=== PATIENT | female | born 1975 | race American Indian/Alaskan Native ===

== ENCOUNTER 2022-05-08 07:16 | Outpatient (CLI) | payer OTHER ==
--- NOTE | 2022-05-08 13:01 | Fluoroscopy Report ---
SMALL BOWEL FOLLOW-THROUGH HISTORY: R10.9. TECHNIQUE: Single contrast barium technique utilized to evaluate the small bowel. FINDINGS: Small bowel transit time was 60 minutes which is normal. No fold thickening, mass, mass e ffect, stenosis, or obstruction. The terminal ileum is normal in appearance. IMPRESSION: Unremarkable exam. FLUOROSCOPIC TIME: 0.8 minutes NUMBER OF FLUOROSCOPIC IMAGES: 3 Signer Name: Jose Bar Jr, MD Signed: 05/08/2022 12:57 PM Workstation Name: [id number]
--- NOTE | 2022-05-08 15:42 | Fluoroscopy Report ---
UPPER GI HISTORY: N39.0 R93.5. TECHNIQUE: Single and double contrast barium technique utilized to evaluate the esophagus, stomach, and duodenal C-loop. FINDINGS: To begin the exam, swallowing was evaluated in the lateral position under direct fluorosco py. Swallowing was normal. No mucosal irregularity, mass, mass effect, or critical stenosis. Normal motility in the esophagus. There was slightly delayed gastric emptying with poor gastric peristalsis. No gastroesophageal reflu x. IMPRESSION: Question mild gastroparesis. No mucosal defect, abnormal dilatation or reflux disease wi tnessed. Fluoroscopic time: 5.3 minutes Number of fluoroscopic images: 57 Signer Name: Jose Bar Jr, MD Signed: 05/08/2022 3:38 PM Workstation Name: [id number]
== END 2022-05-08 07:17 | disposition home or self-care (01) ==
LOC: FLUORO 07:16
PROVIDERS: ATTEND Internal Medicine
DX: N39.0 Urinary tract infection, site not specified (principal); R10.9 Unspecified abdominal pain; R93.5 Abnormal findings on diagnostic imaging of other abdominal regions, including retroperitoneum
CPT/HCPCS: 74246; 74250